=== PATIENT | female | born 1975 | race Caucasian/White ===

== ENCOUNTER 2020-10-02 12:04 | Emergency (ER) | payer BC, SELFPAY ==
--- NOTE | ~2020-10-02 | XR_ITS ---
EXAMINATION: XR elbow RT min 3V DATE: 10/02/2020 12:49 INDICATION: Posterior right elbow pain post fall TECHNIQUE: Anteroposterior, two oblique and lateral views of the right elbow were obtained. COMPARISON: None. FINDINGS: Alignment is normal. No fracture or joint effusion. Joint spaces are normal. Soft tissues are unremar kable. IMPRESSION: 1. No right elbow joint effusion or osseous abnormality. Reviewed, dictated and finalized at location A.
--- NOTE | ~2020-10-02 | XR_ITS ---
EXAMINATION: XR facial bones min 3V DATE: 10/02/2020 12:50 INDICATION: Face injury. TECHNIQUE: 4 views of the facial bones were obtained. COMPARISON: None. FINDINGS: Bone alignment is normal. No fracture. The paranasal sinuses are clear. IMPRESSION: 1. No fracture. Reviewed, dictated and finalized at location B. IMPRESSION: 1. No fracture.
[2020-10-02 12:13] VITALS: BP 139/85; PULSE 84; RESP 20; TEMP 37.7; O2SAT 99
--- NOTE | 2020-10-02 12:22 | ED.FALL ---
HPI - Fall General Chief Complaint: Extremity Injury, Upper Stated Complaint: finger elbow and nose injury Time Seen by Provider: 10/02/20 12:22 Source: patient and RN notes reviewed History of Present Illness HPI Narrative: Patient is a 44-year-old female who presents the urgent care with complaints of right elbow pain, nose pain and left finger pain. Patient states that she was wearing fuzzy socks and fell forward, hitting her face on a wooden toy box in her right elbow on the floor. Patient states it happened approximately 45 minutes prior to arrival. Patient denies of any loss of consciousness or blurry vision. States that she does have a severe headache after the fall. Denies of any dizziness. Patient's main complaint is right elbow pain and nasal pain. Patient denies of any past history of deviated septum, broken nose, broken right arm. Patient did not take anything prior to arrival for her pain. No other acute complaints. Patient is tearful but otherwise no acute distress noted. Patient aware of the plan of care. Some parts of this dictation were generated by voice recognition software and may contain typographical and/or grammatical inaccuracies. Related Data Home Medications Medication Instructions Recorded Confirmed atorvastatin 40 mg PO DAILY 10/02/20 10/02/20 fenofibrate 54 mg PO DAILY 10/02/20 10/02/20 metformin 1,000 mg PO DAILY 10/02/20 10/02/20 sertraline 50 mg PO DAILY 10/02/20 10/02/20 Allergies Allergy/AdvReac Type Severity Reaction Status Date / Time No Known Allergies Allergy Unknown Verified 07/14/18 11:52 Review of Systems Review of Systems: Narrative: CONSTITUTIONAL: Denies fever, chills, or sweats. EYES: Denies visual changes, redness, or discharge. ENT: Denies rhinorrhea, congestion, sore throat, or otalgia. CARDIOVASCULAR: Denies chest pain, palpitations, or edema. RESPIRATORY: Denies cough or dyspnea. GASTROINTESTINAL: Denies abdominal pain, nausea, vomiting, or diarrhea. GENITOURINARY: Denies dysuria or hematuria. SKIN: Denies rash or itching. MUSCULOSKELETAL: Denies back pain, joint pain, or myalgia. NEUROLOGIC: Denies headache, numbness, or weakness. All other systems reviewed are negative, except as documented in HPI. [facility] Social History Social History Gender identity (if verbalized by the patient): Female Comments At the time of my signature, I reviewed and agree with the nursing past medical, surgical, social, and family history. There is no relevant family history pertinent to the patient complaint. Exam Narrative: Exam Narrative: GENERAL: This is a well-nourished, well-developed patient, in no apparent distress. HEAD: normocephalic, atraumatic. EYES: PERRL. Sclera clear/white. Vision is grossly intact. EARS: External ears normal NOSE: External nose normal with no obvious nasal discharge, nares without redness, no rhinorrhea. THROAT: Mucous membranes moist NECK: Neck supple SKIN: 1 cm circular superficial abrasion to the right elbow, bloody. Warm, intact with no suspicious lesions or rash, good texture and turgor. NEURO: awake, alert, and oriented to person, place and time. There were no obvious focal neurologic abnormalities. EXTREMITIES: Very mild ecchymosis noted to the left third digit. Range of motion due to pain. No obvious deformity or edema. Positive left radial pulse with capillary refill less than 2 seconds. BACK: Nontender without deformity or crepitance. No flank tenderness. Course Vital Signs Vital signs: Vital Signs Temperature 99.8 F H 10/02/20 12:13 Pulse Rate 84 10/02/20 12:13 Respiratory Rate 10/02/20 12:13 Blood Pressure 139/85 10/02/20 12:13 Pulse Oximetry 99 10/02/20 12:13 Temperature 99.8 F H 10/02/20 12:13 Pulse Rate 84 10/02/20 12:13 Respiratory Rate 20 10/02/20 12:13 Blood Pressure 139/85 10/02/20 12:13 Pulse Oximetry 99 10/02/20 12:13 Reviewed Procedures Orthopedic Splinting/Casting Injury #1
== END 2020-10-02 13:17 | disposition home or self-care (01) ==
PROVIDERS: Emergency Provider Nurse Practitioner Family; PCP Family Medicine
DX: S50.01XD Contusion of right elbow, subsequent encounter (principal); S00.33XD Contusion of nose, subsequent encounter; S60.032A Contusion of left middle finger without damage to nail, initial encounter; W19.XXXD Unspecified fall, subsequent encounter
CPT/HCPCS: 29130; 70150; 73080; 99214; G0463

== ENCOUNTER 2021-04-13 17:41 | Emergency (ER) | payer OTHER, BC, SELFPAY ==
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
[2021-04-13 18:06] VITALS: BP 126/82; PULSE 72; RESP 14; TEMP 36.4; O2SAT 99
[2021-04-13] MEDS: ACETAMINOPHEN 500 MG TABLET 1000 MG PO (20:01)
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
== END 2021-04-13 21:09 | disposition home or self-care (01) ==
PROVIDERS: Emergency Provider Emergency Medicine; PCP Family Medicine
DX: S09.90XA Unspecified injury of head, initial encounter (principal); S80.02XA Contusion of left knee, initial encounter; E11.9 Type 2 diabetes mellitus without complications; E78.5 Hyperlipidemia, unspecified; Z79.84 Long term (current) use of oral hypoglycemic drugs; V43.62XA Car passenger injured in collision with other type car in traffic accident, initial encounter
CPT/HCPCS: 70450; 73564; 99284; A9270

== ENCOUNTER 2022-06-28 10:16 | Outpatient (CLI) | payer BC, SELFPAY ==
--- NOTE | 2022-06-28 10:29 | ECG_ITS ---
Measurements Intervals [place] Rate: 72 P: 32 SD: 159 QRS: 20 QRSD: 85 T: 37 QT: 407 QTc: 446 Interpretive Statements SINUS RHYTHM LOW QRS VOLTAGE IN PRECORDIAL LEADS [QRS DEFLECTION < 1.0 mV IN CHEST LEADS] POSSIBLE RIGHT VENTRICULAR CONDUCTION DELAY [RSR (QR) IN V1/V2] BORDERLINE ECG NO PREVIOUS ECG AVAILABLE FOR COMPARISON Electronically Signed On 06-28-2022 15:01:08 POT ANNEALER by Augustus Fuentes M.D.
[2022-06-28 11:29] LABS: Alanine Aminotransferase 14 U/L (6-35); Albumin Level 4.5 g/dL (3.5-5.1); Alkaline Phosphatase 62 U/L (38-126); Amylase 87 U/L (30-110); Aspartate Amino Transferase 19 U/L (14-36); Bilirubin,Total 0.6 mg/dL (0.2-1.3); Lipase 181 U/L (23-300)
[2022-06-28 11:31] LABS: Anion Gap 4 mmol/L (8-16); Blood Urea Nitrogen 19 mg/dL (7-17); Calcium 8.9 mg/dL (8.4-10.2); Carbon Dioxide 27 mmol/L (22-30); Chloride 105 mmol/L (98-107); Estimated Glomerular Filt Rate > 60; Glucose 90 mg/dL (65-110); Potassium 3.8 mmol/L (3.4-5.0); Sodium 136 mmol/L (137-145)
== END 2022-06-28 10:17 | disposition home or self-care (01) ==
LOC: ANHSURGERY 10:20
PROVIDERS: Anesthesiology; PCP Family Medicine; Visit Provider Surgery
DX: K80.20 Calculus of gallbladder without cholecystitis without obstruction (principal); E11.9 Type 2 diabetes mellitus without complications; Z01.818 Encounter for other preprocedural examination; R94.31 Abnormal electrocardiogram [ECG] [EKG]
CPT/HCPCS: 36415; 80048; 80076; 82150; 83690; 86850; 86900; 86901; 93005

== ENCOUNTER 2022-07-09 02:57 | Day surgery (SDC) | payer BC, SELFPAY ==
[2022-06-26 14:17] VITALS: BMI 30.9
--- NOTE | 2022-06-26 14:20 | PC.NURSE ---
Report to the Outpatient Waiting Room, entrance under the green pavilion located off [facility], at time 11:30 on date 07/09/22. Planned Procedure Time: 1:30. Time changes happen often and if your time is changed the preop area will call you the afternoon before. - You and your visitor will be asked to self-screen and do not enter if you have any COVID symptoms. - Only one visitor is requested with a max of two and NO children visitors are allowed at this time. - The patient visitor may be requested to leave or wait in car when not with patient due to distancing restrictions. - A mask is optional within the hospital at this time. Patients may have clear liquids (water, carbonated beverages, clear teas, apple juice) until 3 hours prior to surgery (10:30) with a maximum of 20 ounces. - No food from midnight until time of surgery Take the following medications with a SIP of water the morning of surgery: TRAMADOL IF NEEDED DO NOT STOP ANY OF YOUR OTHER PRESCRIPTION MEDICATIONS PRIOR TO SURGERY EXCEPT THE FOLLOWING Medications to discontinue per physician: N/A Date to take last dose: N/A Please no make-up, nail maltese, hairspray, perfume, deodorant, or body powder the day of surgery. No jewelry (including any body piercings) or valuables the day of surgery, leave them at home. Please take a shower or bath the night before, or the morning of, surgery with an antibacterial soap (HIBICLENS). Wear comfortable, loose fitting clothing. - Jewelry must be removed prior to entering the operating room. Rings and piercings that are not removed may be cut off. - The hospital will not accept responsibility for valuables. - Please leave all valuables, including medications, at home the day of surgery. If you are going home after surgery, a licensed backhaul driver must drive you home. - NO public transportation without another adult if you receive anesthesia. - We recommend that an adult stay with you for 24 hours following discharge. - We also recommend that you do not drive, make important decision, drink alcoholic beverages, or take any drugs that were not prescribed by your health care provider for at least 24 hours after your discharge time. Follow any additional instructions given to you from your surgeon. If you or anyone in your household have experienced Covid symptoms in the past week, please notify your surgeon or the nurse liaison at the phone number below for possible testing. Telephone instructions given to LORNA SHAW and asked if any additional questions and then verbalized understanding. Patient advised to call surgeon office or pre surgery nurse liaison [phone] if any additional questions.
--- NOTE | 2022-07-08 15:31 | WPDANESEPPF ---
Anes - Initial Pre Proc Eval Procedure: Operation Date: 07/09/22 13:30 Proposed Procedures p Laparoscopic Cholecystectomy, Possible Open, Davinci Assisted - Ladarius Rust DO Date/Time: 07/08/22 15:31 Surgeon: Ladarius Rust DO Pre Op Diagnosis: Symptomatic Cholelithiasis Patient Data Age: 46 Gender: F Height: 1.63 m Weight: 81.65 kg Allergies Allergy/AdvReac Type Severity Reaction Status Date / Time No Known Allergies Allergy Unknown Verified 07/09/22 11:56 Home Medications Medication Instructions Recorded Confirmed Type atorvastatin 40 mg tablet 40 mg PO HS 10/02/20 07/09/22 History fenofibrate 54 mg tablet 54 mg PO HS 10/02/20 07/09/22 History metformin 1,000 mg tablet 1,000 mg PO HS 10/02/20 07/09/22 History sertraline 50 mg tablet 50 mg PO HS 10/02/20 07/09/22 History omeprazole 40 mg capsule,delayed 40 mg PO HS 06/14/22 07/09/22 History release semaglutide 0.25 mg or 0.5 mg (2 0.25 mg subcut WEEKLY 06/14/22 07/09/22 History mg/1.5 mL) subcutaneous pen injector ([employer]) tramadol 50 mg tablet 50 mg PO TID PRN Pain 06/26/22 07/09/22 History ECG: Date of Service: 06/28/22 Procedure(s): CA 12 lead EKG Accession Number(s): [id number] cc: ~ ? Measurements Intervals? [place]? Rate: ? 72 ? P:? 32 SC: ? 159? QRS:? 20 QRSD: ? 85 ? T:? 37 QT: ? 407? QTc:? 446? Interpretive Statements SINUS RHYTHM LOW QRS VOLTAGE IN PRECORDIAL LEADS [QRS DEFLECTION < 1.0 mV IN CHEST LEADS] POSSIBLE RIGHT VENTRICULAR CONDUCTION DELAY [RSR (QR) IN V1/V2] BORDERLINE ECG NO PREVIOUS ECG AVAILABLE FOR COMPARISON Electronically Signed On 06-28-2022 15:01:08 ACCOUNTING SOFTWARE SPECIALIST by Augustus Fuentes M.D. Patient hx anesthesia problems: none Family hx anesthesia problems: none Results Review: All pre-operative results and documents have been reviewed as part of the pre-operative evaluation. 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 Informed Consent: The patient's anesthetic plan and its attendant risks and benefits were discussed with the patient/family/POA. Questions were solicited and answers provided to the satisfaction of the patient/family/POA.
[2022-07-09] VITALS (10 sets, daily range): BP systolic 100–117; BP diastolic 62–73; PULSE 78–89; RESP 14–18; TEMP 36.1–36.5; O2SAT 98–100
[2022-07-09] MEDS: LACTATED RINGERS 1,000 ML 30 ML IV CONT ×2 (12:05→15:37)
[2022-07-09] MEDS: INDOCYANINE GREEN 25 MG VIAL 3.75 MG IV PUSH (12:06)
[2022-07-09 12:14] LABS: Glucose Point of Care 94 mg/dl (65-105)
[2022-07-09] MEDS: ACETAMINOPHEN 500 MG TABLET 1000 MG PO (12:23)
[2022-07-09] MEDS: KETOROLAC 15 MG/ML VIAL (*BKC) IV PUSH (12:26)
--- NOTE | 2022-07-09 13:54 | WPDHPUPDATE1 ---
History and Physical Update Update Date/Time: 07/09/22 13:54 History and Physical has been reviewed, including an updated exam of the patient. There are NO changes in the patient's condition. Plan changed to proceed with laparoscopic cholecystectomy, da Julio César assisted. No other changes to plan. Risks, benefits, and alternatives have been discussed and questions answered. Patient agrees to proceed with procedure.
--- NOTE | 2022-07-09 13:57 | SUR.PREOP ---
informed of delay in procedure
[2022-07-09] MEDS: ceFAZolin 2 GM/D5W 50 ML 2 GM/50 ML BAG IVPB (14:23)
[2022-07-09] MEDS: BUPIVACAINE/EPINEPHRINE 0.5% 30 ML VIAL INFILTRATE (15:07)
--- NOTE | 2022-07-09 15:38 | W.PM.PROC2 ---
Procedure Note - Detailed Date of Procedure 07/09/22 Pre-op Diagnosis Symptomatic Cholelithiasis Post-op Diagnosis Same Procedure Performed 1. Laparoscopic cholecystectomy with cholangiography, da Julio César assisted 2. Interpretation of cholangiography Surgeon Ladarius Rust DO Anesthesia General and Local (0.5% bupivacaine) Indications This is a 46-year-old woman who presented with right upper quadrant pain that started about 1 month ago. She noted this after eating fried food. A gallbladder ultrasound was obtained at an outside facility and this showed evidence of cholelithiasis without cholecystitis. Discussions were made with the patient about treatment options and decision was made to proceed with robotic assisted laparoscopic cholecystectomy, possible open. Findings Laparoscopic cholecystectomy was performed. Indocyanine green was given intravenously preoperatively to allow for adequate visualization of the bile ducts. Near infrared imaging was utilized to identify the cystic duct and common bile duct. This allowed me to adequately identify the anatomy for dissection of the cystic duct. The gallbladder had a few pericholecystic adhesions. The cystic duct appeared normal in size. There was 1 medium sized gallstone within the neck of the gallbladder. No other significant abnormalities were noted. The gallbladder was removed and sent to the lab for pathology. Description of Procedure Procedure as well as risks, benefits, and alternatives were discussed with the patient. Written consent was obtained and placed in chart prior to procedure. 1.5 mL of indocyanine green was given intravenously in preop. Patient was brought back to surgical suite. She was placed supine on operating table. Time-out was done to confirm patient and procedure. She was then intubated by the anesthesia department. Her abdomen was then prepped and draped in sterile fashion using chlorhexidine prep. 0.5% bupivacaine was infiltrated locally at the site of each port placement. An 8 mm incision was made just superior to the umbilicus and a 5 mm Optiview trocar was then advanced through the abdominal layers under direct visualization. Once inside the abdominal cavity, carbon dioxide insufflation was used to create a pneumoperitoneum. The camera was inserted and the abdomen was inspected. No mediated abnormalities were noted. The patient was placed in 10? reverse Trendelenburg position and rotated 10? to the left. Two 8 mm incisions were made in the right lateral abdomen and 2 8 mm trocars were inserted under direct visualization. A 8 mm incision was made in the left lateral abdomen and a 8 mm trocar was inserted under direct visualization. The 5 mm Optiview trocar was then removed and another 8 mm trocar was inserted in its place. The robotic arms were then brought up to the patient's bedside and secured to each port. The camera and instruments were inserted. I then moved over to the robotic consult to take control of the camera and instruments. The gallbladder was grasped at the fundus and retracted cephalad. The infundibulum of the gallbladder was then grasped and retracted laterally. Hook electrocautery was then used to carefully dissect around the neck of the gallbladder. The cystic duct was identified and a window was created around it using hook electrocautery. The cystic artery was also identified and a window was created behind it using hook electrocautery. Critical view of safety was identified visualizing the cystic duct running directly into the neck of the gallbladder and the cystic artery running directly into the wall the gallbladder. The camera view was switched to firefly mode and the indocyanine green within the gallbladder and cystic duct was clearly visualized. No other structures were noted running into this region and there did not appear to be any obstruction of the cystic duct impeding flow of bile into the gallbladder. The camera mode was switch
[2022-07-09 15:47] LABS: Glucose Point of Care 142 mg/dl (65-105)
[2022-07-09] MEDS: oxyCODONE HCL (*CRX) 5 MG TAB IR PO (17:50)
== END 2022-07-09 18:20 | disposition home or self-care (01) ==
PROVIDERS: PCP Family Medicine; Visit Provider Surgery
PROC: 0FT44ZZ Resection of Gallbladder, Percutaneous Endoscopic Approach (ICD-10-PCS; CPT 47562; principal; 2022-07-09 13:30)
DX: K80.10 Calculus of gallbladder with chronic cholecystitis without obstruction (principal); E11.9 Type 2 diabetes mellitus without complications; K21.9 Gastro-esophageal reflux disease without esophagitis; E78.00 Pure hypercholesterolemia, unspecified; F32.A Depression, unspecified; E66.9 Obesity, unspecified; Z68.30 Body mass index [BMI] 30.0-30.9, adult; Z79.84 Long term (current) use of oral hypoglycemic drugs; Z79.899 Other long term (current) drug therapy
CPT/HCPCS: 47563; 74300; S2900; 82948; 88304; A9270; J0690; J1100; J1885; J2405; J2704; J2710; J3010; J7030; J7120

== ENCOUNTER 2024-11-02 17:48 | Emergency (ER) | payer BC, SELFPAY ==
--- OUTSIDE RECORDS SUMMARY | 2024-11-02 17:50 | XMS_ITS | Clinical Summary ---
Author Organization [facility] Health Address [address] [place] [address] Care Team Providers Care Management Services Technician Name Role Phone Edmundo Costello MD Primary Care Provider [phone] Source Comments [facility],non-[facility] Affiliates and Associated Physician Practices is amultiple site organization consisting of ambulatory clinics and hospital sitesin [place], [place], [place] and [place]. This disclosure is being madepursuant to the Care Everywhere program and may not contain all information available regarding this patient. 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 Gender Identity Not on file Sexual Orientation Not on file Plan of Treatment Health Maintenance Due Date Last Done Comments COLOGUARD (AGES 45-75) - COL ON CA SCREENING 1976 COLON MONITORING 1976 COLONOSCOPY - COLON CA SCREENING 1976 CT COLONOGRAPHY - COLON CA SCREENING 1976 Colorectal Cancer Screening 1976 FIT - COLON CA SCREENING 1976 FLEX SIG - COLON CA SCREENING 1976 LIPID TESTING 1976 MAMMOGRAM 1976 HIV SCREENING 11/19/1991 HEPATITIS C SCREENING 11/14/1994 DTAP/TDAP/TD VACCINES (1 - Tdap) 11/19/1995 HEPATITIS B VACCINE (1 of 3 - 19+ 3-dose series) 11/19/1995 COVID-19 VACCINE (2023-2 5 season) 2024 DEPRESSION SCREENING 05/26/2024 INFLUENZA VACCINE (Season Ended) 2025 ZOSTER VACCINE (1 of 2) 2026 HIB VACCINE Aged Out No longer eligi ble based on patient's age to complete this topic HPV VACCINE Aged Out No longer eligi ble based on patient's age to complete this topic MENINGOCOCCAL (Group B) VACC INE SHARED DECISION-MAKING Aged Out No longer eligibl e based on patient's age to complete this topic MENINGOCOCCAL GROUPS A/C/Y/W VACCINE Aged Out No longer eligible b ased on patient's age to complete this topic PNEUMOCOCCAL VACCINE Aged Out No long er eligible based on patient's age to complete this topic Care Teams Management Services Technician Relationship Specialty Start Date End Date Edmundo Costello MD [address] [place] [address] PCP - General 07/30/22
--- OUTSIDE RECORDS SUMMARY | 2024-11-02 17:50 | XMS_ITS | Referral Summary ---
Author Organization [facility] Address [address] [place] [address] Care Team Providers Care Psychology Department Chair Name Role Phone Edmundo Costello MD Unavailable [phone] Edmundo Costello MD Primary Care Provider [phone] Allergies No known active allergies Medications blood-glucose meter (Freestyle InsuLinx) miscIndication s:Type 2 diabetes mellitus without complication, without long-term current use of insulin (HCC) Test daily before all meals/snacks and once before bedtime. 1 each 06/17/19 Active lancets miscIndication s:Type 2 diabetes mellitus without complication, without long-term current use of insulin (HCC) Use to check blood sugars once daily or as directed. 200 each 06/17/19 Active blood glucose diagnostic (OneTouch Verio test strips) stripIndicatio ns:Type 2 diabetes mellitus without complication, without long-term current use of insulin (HCC) USE TO CHECK BLOOD SUGAR ONCE A DAY OR DIRECTED 50 strip 06/25/19 Active OneTouch Delica Plus Lancet 33 gauge misc 12/12/19 Active atorvastatin (LIPITOR) 20 mg tabletIndicati ons:Hyperlipid emia associated with type 2 diabetes mellitus (HCC) Take 1 tablet (20 mg total) by mouth daily 90 tablet 4 01/29/20 24 025 Active tirzepatide (Mounjaro) 12.5 mg/0.5 mL pen injector Inject 12.5 mg under the skin every 7 days 2 mL 03/25/20 24 Active ondansetron (ZOFRAN) 4 mg tablet Take 1 tablet (4 mg total) by mouth every 8 (eight) hours as needed for nausea or vomiting 30 tablet 05/28/19 25 Active sertraline (ZOLOFT) 100 mg tabletIndicati ons:Moderate episode of recurrent major depressive disorder (HCC) TAKE 1 TABLET(100 MG) BY MOUTH DAILY 90 tablet 4 09/28/19 25 Active Mounjaro 15 mg/0.5 mL pen injector injection ADMINISTER 15 MG UNDER THE SKIN EVERY 7 DAYS 2 mL 10/16/19 25 Active Mounjaro 15 mg/0.5 mL pen injector injection ADMINISTER 15 MG UNDER THE SKIN EVERY 7 DAYS 2 mL 09/21/19 25 025 Discontinued Active Problems Problem Noted Date Diagnosed Date Physical exam, annual 01/27/2024 Assessment & Plan (01/27/2024 4:23 PM CDT): Preventive exam; reviewed recommended preventive screenings and vaccinations. Encourage annual flu vaccine. Wear sunscreen/protective clothing when outdoors. -encouraged patient to schedule mammogram, reordered mammogram today Strain of left shoulder 02/10/2023 Assessment & Plan (02/10/2023 10:56 AM CDT): Instructed patient to avoid aggravating activity as able, will trial use of ibuprofen 3 times a day with food x 7-10 days. Prescribed Flexeril p.r.n.. Follow-up if no improvement. Left lower quadrant abdominal mass 08/23/2022 Assessment & Plan (08/23/2022 3:04 PM CDT): No concerning findings on exam. Soft tissue mass c/w lipoma. US ordered. Patent is established with general surgeon Dr. Augustin, will call to schedule eval and discuss surgical option/candidacy. BMI 29.0-29.9,adult 08/23/2022 Assessment & Plan (08/23/2022 3:05 PM CDT): Congratulated on intentional weight loss of 40 lbs. Calculus of gallbladder with out cholecystitis without obstruction 06/17/2022 Assessment & Plan (07/03/2022 11:45 AM PHOTO FINISHER): Intermittent pain, scheduled for cholecystectomy scheduled 07/09/[address] Rust. Continues prn tramadol and ondansetron. Reviewed need to follow bland diet and avoid fatty/spicy foods. Go to ER if experiencing new or worsening pain. Assessment & Plan (06/17/2022 9:43 AM PHOTO FINISHER): Normal exam today. Patient has not been experiencing pain for the past 48 hours. Normal labs. Encouraged her to follow low fat diet and keep symptom log. Recommended use of miralax for periodic constipation. Reviewed red flag signs and symptoms warranting immediate ER evaluation. Will refer to general surgery for further evaluation of possible cholecystectomy. Chronic pain of left knee 03/01/2021 Assessment & Plan (03/01/2021 10:12 AM CDT): Discussed imaging and PT vs referral. Patient would like referral to ortho to discuss if candidate for steroid injections. Reviewed pain relief options. Recommended topical pain relief such as diclofenac gel. Encounter for screening mammogram for breast can cer 03/01/2021 Assessment & Plan (03/01/2021 10:11 AM CDT): Patient aware to schedule mammogram. Continue monthly sbe. COVID-19 virus infection 06/23/2020 Class 1 obesity due to exces s calories with serious comorbidity and body mass index (BMI) of 30.0 to 30.9 in adult 06/12/2020 Assessment & Plan (01/27/2024 4:24 PM CDT): Encouraged healthy diet and regular exercise Assessment & Plan (07/03/2022 11:45 AM PHOTO FINISHER): Discussed healthy diet and importance of regular physical activity. Assessment & Plan (06/17/2022 9:21 AM PHOTO FINISHER): Continues ozempic 1 mg weekly. Encouraged increase exercise and monitoring diet/portions. Wt Readings from Last 6 Encounters: 06/17/22 82.6 kg (182 lb) 06/12/22 83.5 kg (184 lb) 02/05/22 93.3 kg (205 lb 9.6 oz) 12/05/21 96.2 kg (212 lb) 05/25/21 96.2 kg (212 lb) 03/01/21 96.4 kg (212 lb 9.6 oz) Assessment & Plan (10/01/2021 1:39 PM CDT): Discussed healthy diet and importance of regular physical activity. Discussed side effects of weight loss with use of ozempic for diabetes management. Assessment & Plan (03/01/2021 10:13 AM CDT): Discussed healthy diet and importance of regular physical activity. Gastroesophageal reflux dise ase with esophagitis without hemorrhage 05/14/2019 Assessment & Plan (10/01/2021 1:46 PM CDT): Patient where GERD and history ofeosinophilic esophagitis and stricture, not currently taking PPI. EGD with biopsy and dilation in completed 2018. Patient States that it is pantoprazole was not covered by insurance so she has not been taking anything for her GERD symptoms at this time. Recommended she resume omeprazole 40 mg daily and follow-up with GI. Assessment & Plan (05/14/2019 3:37 PM PHOTO FINISHER): Stable on omeprazole. Complicated migraine 02/02/2019 Assessment & Plan (02/02/2019 4:16 AM CDT): Currently resolved. Patient states she also stopped taking caffeine yesterday which may have contributed to her headache. Patient also took her 1st dose of Provigil the night before presentation. Currently patient's headache has resolved. Left-sided weakness 02/02/2019 Assessment & Plan (02/02/2019 4:18 AM CDT): Suspect it is related to a complicated migraine. Her symptoms completely resolved after resolution of her headache. Patient had a similar symptoms years ago at [facility]. She states the only reason she did not get tPA was that she just had a polyp removed from her throat and they were concern for bleeding. During that episode, patient states she had left-sided weakness and numbness 1st prior to the headache. Neurology has been consulted will await their evaluation. Continue with neuro checks. Dysphagia 10/15/2018 Assessment & Plan (10/15/2018 3:35 PM CDT): The patient's exam shows a healthy larynx, without evidence of laryngopharyngeal reflux. The patient has a previous diagnosis of eosinophilic esophagitis. Given this previous diagnosis and today's exam, we feel that evaluation by gastroenterology and upper endoscopy may be a prudent first step and the workup of the dysphagia. Esophageal stricture 10/15/2018 Overview (10/15/2018): Added automatically from request for surgery [id number] Narcolepsy and cataplexy 10/12/2018 Assessment & Plan (05/14/2019 3:33 PM PHOTO FINISHER): Stable on current medication. Obstructive sleep apnea (adult) (pediatric) 09/24 Refused influenza vaccine 09/08/2018 Assessment & Plan (09/11/2018 8:06 AM CDT): Strongly encouraged yearly influenza vaccines. Hyperlipidemia associated with type 2 diabetes zuri mendenhall 09/08/2018 Assessment & Plan (01/27/2024 3:54 PM CDT): Discontinue atorvastatin 1 year ago. Previously explained to patient that she will likely need to continue taking statin however she will need to repeat labs to determine dosage. Assessment & Plan (02/10/2023 10:56 AM CDT): Will discontinue atorvastatin 40 mg daily and repeat labs in 3 months. Discussed with patient that she will likely continue to require use of statin although can consider restarting at lower dosage pending labs. Assessment & Plan (06/17/2022 9:37 AM PHOTO FINISHER): Continues atorvastatin 40 mg daily with good response. Will continue to monitor. Assessment & Plan (10/01/2021 1:48 PM CDT): 02/2021 TC 162 HDL 34 TRG 127 LDL 102 Reviewed diet and exercise recommendations. Continue atorvastatin 40 mg daily, patient denies any medication side effects. Lab work ordered today. Assessment & Plan (03/01/2021 10:02 AM CDT): TC 162 HDL 34 TRG 127 LDL 102 Reviewed diet and exercise recommendations. No changes in current medications. Assessment & Plan (05/14/2019 3:33 PM PHOTO FINISHER): Briefed on heart healthy diet and need for weight loss. Assessment & Plan (02/02/2019 4:17 AM CDT): Continue statin Assessment & Plan (09/11/2018 8:05 AM CDT): Lipid abnormalities are worsening. Nutritional counseling was provided. and Pharmacotherapy as ordered. Lipids will be reassessed in 3 months. Has not been in clinic in >1yr. Has not been taking meds. Atorvastatin reordered at this time. Primary narcolepsy without cataplexy 09/08/2018 Assessment & Plan (02/02/2019 4:18 AM CDT): Patient was started on Provigil recently and took her 1st dose the day prior to presentation. She states she immediately felt dizzy afterwards. Patient advised to hold Provigil until she speaks to Neurology. Assessment & Plan (09/11/2018 8:06 AM CDT): Referral to Dr Uche Farris per her choice in neuro/sleep medicine. Moderate episode of recurrent major depressive d isorder 09/08/2018 Assessment & Plan (10/01/2021 1:39 PM CDT): Stable on current medication regimen, no medication changes today. Assessment & Plan (03/01/2021 10:14 AM CDT): Doing well on sertraline. PHQ=0 Assessment & Plan (02/02/2019 4:18 AM CDT): Continue Zoloft Assessment & Plan (09/11/2018 8:05 AM CDT): Psychological condition is worsening. Medication changes per orders. Psychological condition will be reassessed 6 week follow-up. Has not been taking meds in >1yr. Will resume sertraline at 50mg. To f/u in 6 wks. Reviewed med SE & scheduling. . Type 2 diabetes mellitus wit hout complication, without long-term current use of insulin 08/20/2018 Assessment & Plan (01/27/2024 4:23 PM CDT): Lab Results Component Value Date HGBA1C 5.6 10/10/2022 HGBA1C 6.0 06/17/2022 HGBA1C 7.8 (H) 02/27/2022 Doing well with Mounjaro 10 mg weekly. Patient is up-to-date on eye exam. Blood pressure is well controlled. Will check lipids and plan to reinitiate statin therapy if indicated. No changes made today, will continue to monitor Assessment & Plan (02/10/2023 10:57 AM CDT): Lab Results Component Value Date HGBA1C 5.6 10/10/2022 HGBA1C 6.0 06/17/2022 HGBA1C 7.8 (H) 02/27/2022 Excellent glycemic control, no changes in current medication regimen. Blood pressure is well controlled. Assessment & Plan (06/17/2022 9:22 AM PHOTO FINISHER): Lab Results Component Value Date HGBA1C 6.0 06/17/2022 HGBA1C 7.8 (H) 02/27/2022 HGBA1C 9.8 03/01/2021 Significant improvement in a1c. Encouraged to check blood glucose periodically. Assessment & Plan (10/01/2021 1:35 PM CDT): Has occasionally forgot morning dose of metformin but otherwise has been tolerating 1000mg BID. A1c ordered. Continue Metformin. Will start semaglutide 0.25 mg sub q weekly for diabetes management. Reviewed medication scheduling and side effects, discussed dose increase after 4 weeks. Patient states she had an eye exam 6 months ago at [facility], will request records. Checking feet daily, - neuropathy. Reviewed diet and exercise recommendations. Assessment & Plan (03/01/2021 10:02 AM CDT): Patient to increase metformin to 1000mg BID. Will continue to follow A1c. Encouraged patient to monitor BS at home. Reviewed diet and exercise recommendations. To schedule annual eye exam. Lab Results Component Value Date HGBA1C 9.8 03/01/2021 HGBA1C 8.4 (H) 06/12/2020 HGBA1C 9.9% 05/14/2019 Assessment & Plan (05/14/2019 3:32 PM PHOTO FINISHER): Will increase metformin follow-up in 3 months. Reviewed most recent labs Assessment & Plan (02/02/2019 4:17 AM CDT): Patient is on metformin. Continue with low-dose sliding scale. Assessment & Plan (09/11/2018 8:07 AM CDT): Diabetes is worsening. Reminded to bring in blood sugar diary at next visit. Dietary recommendations for ADA diet. Regular aerobic exercise. Discussed foot care. Reminded to get yearly retinal exam. Ophthalmology referral. Diabetes will be reassessed in 3 months. Poorly controlled diabetic. Poor compliance with diabetic treatment and testing. Last A1c=8.5% Stressed need to watch intake and monitor blood sugars. Reviewed end-organ damage related to elevated blood sugars. Reviewed recommendations in diet and exercise. Stressed need to take medications as ordered. Discussed diabetic eye exam; need yearly. To send any past eye exams to our office. Cough 08/30/2016 Overview (10/18/2016): Cough Carpal tunnel syndrome 08/30/2015 Overview (08/30/2016): Carpal tunnel syndrome, right Eosinophilic esophagitis Assessment & Plan (10/15/2018 10:13 PM CDT): Discussed with patient that this needs management from a GI. Resolved Problems Problem Noted Date Diagnosed Date Resolved Date BMI 35.0-35.9,adult 09/08/2018 03/01/20 21 Assessment & Plan (05/14/2019 3:33 PM PHOTO FINISHER): Advised on need for weight loss in maintaining an aerobic exercise program. Assessment & Plan (09/11/2018 8:04 AM CDT): Reviewed need to lose weight, reviewed health benefits. Reviewed recommendations for daily intake & activity 20-30 minutes/day. Discussed healthy diet and importance of regular physical activity. Difficulty exercising at this time d/t bilat foot pain. Neck pain 02/29/2016 09/11/2018 Overview (08/30/2016): Cervicalgia Immunizations Immunization Administration Dates Next Due Influenza, Unspecified 01/27/2024(Deferr ed: Patient Refused),02/23/2023(Deferred: Patient Refused),02/10/2023(Deferred: Patient Refused),08/23/2022(Deferred: Patient Refused),07/03/2022(Deferred: Patient Refused),06/17/2022(Deferred: Patient Refused),02/23/2022(Deferred: Patient Refused),02/23/2022(Deferred: Patient Refused),02/23/2022(Deferred: Patient Refused),01/24/2022(Deferred: Patient Refused),03/01/2021(Deferred: Patient Refused),02/23/2021(Deferred: Patient Refused),02/23/2021(Deferred: Patient Refused),02/23/2021(Deferred: Patient Refused),02/24/2020(Deferred: Patient Refused),05/26/2019(Deferred: Patient Refused),05/14/2019(Deferred: Patient Refused),09/08/2018(Deferred: Patient Refused),05/26/2018(Deferred: Patient Refused),05/27/2017(Deferred: Patient Refused),05/26/2017(Deferred: Patient Refused),05/27/2016(Deferred: Patient Refused) PPD TEST 01/27/2024 Tdap 01/27/2024 Social History Tobacco Use Types Packs/Day Years Used Date Smoking Tobacco: Never Smokeless Tobacco: Never Tobacco Cessation:Counseling Given: Not Answered Alcohol Use Standard Drinks/Week Comments No 0 (1 standard drink = 0.6 oz pur e alcohol) AUDIT-C Answer Date Recorded Q1: How often do you have a drink containing alc ohol? Never 06/17/2022 Average Number of Drinks Not on file 023 Frequency of Binge Drinking Not on file 05/27 PHQ-2 Answer Date Recorded PHQ-2 Total Score (If total score is 3 or more points, staff should administer the PHQ-9) 0 01/27/2024 Exercise Vital Sign Answer Date Recorde d On average, how many days pe r week do you engage in moderate to strenuous exercise (like a brisk walk)? 0 days 06/17/2022 On average, how many minutes do you engage in exercise at this level? 0 min 06/17/2022 Comments No Sex and Gender Information Value Date Recorded Sex Assigned at Not on file Legal Sex Female 2:39 AM PHOTO FINISHER Gender Identity Not on file Sexual Orientation Not on file Last Filed Vital Signs Vital Sign Reading Time Taken Comments Blood Pressure 110/72 01/27/2024 3:39 PM CDT Pulse 75 01/27/2024 3:39 PM CDT Temperature 36.7 C (98 F) 01/27/2024 3:39 PM CDT Respiratory Rate 16 01/27/2024 3:39 PM CDT Oxygen Saturation 99% 01/27/2024 3:39 PM CDT Inhaled Oxygen Concentration - - Weight 79.4 kg (175 lb) 01/27/2024 3:39 PM CDT Height 162.6 cm (5' 4.02) 01/27/2024 3:39 PM CD T Body Mass Index 30.02 01/27/2024 3:39 PM CDT Plan of Treatment Not on file Procedures Procedure Name Priority Date/Time Associated Diagnosis Comments EGFR Routine 01/28/2024 10:01 AM CDT Type 2 diabetes mellitus without complication, without long-term current use of insulin (HCC) Hyperlipidemia associated with type 2 diabetes mellitus (HCC) HEMOGLOBIN A1C Routine 01/28/2024 10:01 AM CDT Type 2 diabetes mellitus without complication, without long-term current use of insulin (HCC) Hyperlipidemia associated with type 2 diabetes mellitus (HCC) LIPID PANEL Routine 01/28/2024 10:01 AM CDT Type 2 diabetes mellitus without complication, without long-term current use of insulin (HCC) Hyperlipidemia associated with type 2 diabetes mellitus (HCC) ALBUMIN CREATININE RATIO, URINE Routine 01/28/2024 10:01 AM CDT Type 2 diabetes mellitus without complication, without long-term current use of insulin (HCC) Hyperlipidemia associated with type 2 diabetes mellitus (HCC) DIABETIC EYE EXAM Routine 10/11/2023 11: 34 AM CDT SCREENING MAMMOGRAM BILATERAL W SAGAR Schedule Routine, Read Routine (OP Routine) 10/31/2022 10:05 AM CDT Screening mammogram, encounter for STOOL DNA COLOGUARD Routine 07/21/2022 3:30 PM PHOTO FINISHER Encounter for colorectal cancer screening from Last 3 Months or Most Recently Relevant to Health Maintenance Results * eGFR (01/28/2024 10:01 AM CDT) eGFR >90 >=60 mL/min/1. 73 m2 Comment: Interpretive Data Reference Interval Normal >/= 90 mL/min/1.73m2 Mildly decreased* 60 - 89 mL/min/1.73m2 Mildly to moderately decreased 45 - 59 mL/min/1.73m2 Moderately to severely decreased 30 - 44 mL/min/1.73m2 Severely decreased 15 - 29 mL/min/1.73m2 Kidney Failure < 15 mL/min/1.73m2 *Relative to young adult level Estimated glomerular filtration rate is determined by the 2020 CKD-EPI equation recommended by the National Kidney Foundation (A Unifying Approach to GFR Estimation: Recommendations of the NKF-ASK Task Force on Reassessing the Inclusion of Race in Diagnosing Kidney Disease, JASN 2020). The CKD-EPI equation should not be used for patients with unstable renal function and has not been validated in children and those over 70. Current interpretive data was last reviewed 2021. Testing performed by: [facility], [address] [place] [address]., [id number] Blood 01/28/2024 10:0 1 AM CDT 01/28/2024 2:00 PM CDT Sravanthi Banerjee CONVEYOR LOADER LAB BLOOD ORDERABLES Final Result Performing Organization Address City/[facility]/ZIP Co de Phone Number OBED SOMMER (ALLIE) 1 [facility] [place] [address] * Albumin Creatinine Ratio, Urine (01/28/2024 10:01 AM CDT) Albumin Ur <12.0 mg/L Comment: Interpretive Data No reference range established. Current interpretive data was last revised 2018. Testing performed by: [facility], [address] [place] [address]., [id number] Creatinine Ur 273.7 mg/dL OBED SOMMER (ALLIE) Comment: Interpretive Data No reference range established. Current interpretive data was last revised 2018. Testing performed by: [facility], [address] [place] [address]., [id number] Albumin Creatinine Ratio, Ur <4 1 - 29 mg/g OBED SOMMER (ALLIE) Comment:Testing performed by : [facility], [address] [place] [address]., [id number] Urine 01/28/2024 10:0 1 AM CDT 01/28/2024 1:41 PM CDT Sravanthi Banerjee NP LAB URINE ORDERABLES Final Result Performing Organization Address City/[facility]/ZIP Co de Phone Number OBED SOMMER (ALLIE) 1 [facility] [place] [address] * Hemoglobin A1c (01/28/2024 10:01 AM CDT) Hgb A1C 5.5 4.0 - 5.6 % Comment:Testing performed by : [facility], [address] [place] [address]., [id number] Estimated Average Glucose 111 mg/dL OBED SOMMER (ALLIE) Comment: The ADA recommends reporting an estimated Average Glucose (eAG) with all Hemoglobin A1c results using the equation derived from a study of 507 normal and diabetic adults. Minority populations were underrepresented and children were not included. (Diabetes Care 31:9055-0049, 2008). The eAG is not equivalent to a fasting glucose. Testing performed by: [facility], [address] [place] [address]., [id number] Blood 01/28/2024 10:0 1 AM CDT 01/28/2024 1:41 PM CDT Sravanthi Banerjee NP LAB BLOOD ORDERABLES Final Result OBED SOMMER (ALLIE) 1 [facility] [place] [address] * (ABNORMAL) Lipid panel (01/28/2024 10:01 AM CDT) Cholesterol 224(H) 30 - 199 mg/dL Comment: Interpretive Data Ages < or = 19 years Acceptable: <170 mg/dL Borderline high: 170-199 mg/dL High: >or= 200 mg/dL Ages > or = 20 years Desirable: <200 mg/dL Borderline high: 200-239 mg/dL High: >or= 240 mg/dL Literature References: 1. Expert Panel on Integrated Guidelines for Cardiovascular Health and Risk Reduction in Children and Adolescents. Pediatrics 2011;128:S213 2. NCEP Expert Panel. Circulation 2004;110:227 Current Interpretive Data was last revised on 2018. Testing performed by: [facility], [id number] [place] [address], [place]., [address] Triglycerides 101 <=149 mg/dL OBED SOMMER (ALLIE) Comment: Interpretive Data Ages < or = 9 years Acceptable: <75 mg/dL Borderline high: 75-99 mg/dL High: >or= 100 mg/dL Ages 10 to 20 years Acceptable: <90 mg/dL Borderline high: 90-129 mg/dL High: >or= 130 mg/dL Ages > or = 20 years Desirable: <150 mg/dL Borderline high: 150-199 mg/dL High: 200-499 mg/dL Very high: >or= 499 mg/dL Literature References: 1. Expert Panel on Integrated Guidelines for Cardiovascular Health and Risk Reduction in Children and Adolescents. Pediatrics 2011;128:S213 2. NCEP Expert Panel. Circulation 2004;110:227 Current Interpretive Data was last revised on 2018. Testing performed by: [facility], [address] [place] [address]., [id number] HDL 45 >=40 mg/dL CERISAAC SOMMER (ALLIE) Comment: Interpretive Data Ages < or = 19 years Acceptable: >45 mg/dL Borderline low: 40-45 mg/dL Low: <40 mg/dL Ages > or = 20 years Desirable: >or= 60 mg/dL Low: <40 mg/dL Literature References: 1. Expert Panel on Integrated Guidelines for Cardiovascular Health and Risk Reduction in Children and Adolescents. Pediatrics 2011;128:S213 2. NCEP Expert Panel. Circulation 2004;110:227 Current Interpretive Data was last revised on 2018. Testing performed by: [address] [address] LDL, calculated 161(H) <=129 mg/dL [facility] (ALLIE) Comment: Interpretive Data Ages < or = 19 years Acceptable: <110 mg/dL Borderline high: 110-129 mg/dL High: >or= 130 mg/dL Ages > or = 20 years Optimal: <100 mg/dL Near optimal: 100-129 mg/dL Borderline high: 130-159 mg/dL High: >160 mg/dL Calculated using the Cornel LDL-C estimating equation. This equation was implemented on 2024. Prior to this date LDL-C was estimated using the Friedewald equation. Literature References: 1. Expert Panel on Integrated Guidelines for Cardiovascular Health and Risk Reduction in Children and Adolescents. Pediatrics 2011;128:S213 2. NCEP Expert Panel. Circulation 2004;110:227 3. Cornel Mortensen al. HORACE Cardiol. 2020 September 23;5(5):540-548. doi: 10.1001/[email or web address].2020.0013 Current Interpretive Data was last revised on 2024. Testing performed by: [address] [address] Non-HDL Cholesterol 179 mg/dL [facility] (ALLIE) Comment: Interpretive Data Ages < or = 19 years Acceptable: <120 mg/dL Borderline high: 120-144 mg/dL High: >145 mg/dL Ages > or = 20 years When triglycerides are >200 mg/dL, Non-HDL cholesterol is a secondary target of therapy with treatment goals that are 30 mg/dL greater than the LDL cholesterol target. Literature References: 1. Expert Panel on Integrated Guidelines for Cardiovascular Health and Risk Reduction in Children and Adolescents. Pediatrics 2011;128:S213 2. NCEP Expert Panel. Circulation 2004;110:227 Current Interpretive Data was last revised on 2018. Testing performed by: [facility], [address] [place] [address]., [id number] Chol/HDL ratio 5 ABRAHAM SOMMER ([place]) Comment:Testing performed by : [facility], [address] [place] [address]., [id number] Blood 01/28/2024 10:0 1 AM CDT 01/28/2024 1:41 PM CDT Sravanthi Banerjee NP LAB BLOOD ORDERABLES Final Result OBED SOMMER ([place]) 1 [facility] Department [place] [address] * Diabetic Eye Exam (10/11/2023 11:34 AM CDT) Historical Provider HEALTH MAINTENANCE Final Result * Screening Mammogram Bilateral W Sagar (10/31/2022 10:05 AM CDT) Anatomical Region Laterality Modality Breast Bilateral Mammography 10/31/2022 10:1 0 AM CDT Impressions 10/31/2022 10:10 AM CDT There is no mammographic evidence of malignancy. A 1 year screening mammogram is recommended. BI-RADS: 1 - Negative. The patient has been or will be contacted. The patient will be entered into a reminder system with a target due date of 1 year for her next mammogram. Electronically signed by: Tho Roberts M.D. Narrative 10/31/2022 10:10 AM CDT EXAMINATION: SCREENING MAMMOGRAM BILATERAL W SAGAR ORDERING HEALTHCARE PROVIDER: SELF SCREENING MAMMOGRAM HISTORY: Routine screening mammography. COMPARISON: 04/14/2021, 09/09/2018 TECHNIQUE: CC and MLO views of the bilateral breasts were obtained with digital technique using breast tomosynthesis with C view. Computer aided detection was utilized. FINDINGS: DENSITY: There are scattered fibroglandular elements in the bilateral breasts. BREASTS: There are no suspicious masses, suspicious calcifications, or other suspicious findings in either breast. There has been no suspicious interval change. us Self Screening Mammogram IMG MAMMO PROCEDURES Fi nal Result * Stool DNA - Cologuard (07/21/2022 3:30 PM PHOTO FINISHER) Stool DNA - Cologuard Negative Negative [facility] (CLIA #:[id number]) Comment: NEGATIVE TEST RESULT. A negative Cologuard result indicates a low likelihood that a colorectal cancer (CRC) or advanced adenoma (adenomatous polyps with more advanced pre-malignant features) is present. The chance that a person with a negative Cologuard test has a colorectal cancer is less than 1 in 1500 (negative predictive value >99.9%) or has an advanced adenoma is less than 5.3% (negative predictive value 94.7%). These data are based on a prospective cross-sectional study of 10,000 individuals at average risk for colorectal cancer who were screened with both Cologuard and colonoscopy. (Ivory Gaviria et al, N Engl J Med 2014;370(14):2757-7174) The normal value (reference range) for this assay is negative. COLOGUARD RE-SCREENING RECOMMENDATION: Periodic colorectal cancer screening is an important part of preventive healthcare for asymptomatic individuals at average risk for colorectal cancer. Following a negative Cologuard result, the [place] Cancer Society and U.S. Multi-Society Task Force screening guidelines recommend a Cologuard re-screening interval of 3 years. References: [place] Cancer Society Guideline for Colorectal Cancer Screening: https://www.cancer.org/cancer/jimsg-vxeqbh-mdpqpa/qsqlpefso-cwyfohmuz-hrimpcb/ac s-rec ommendations.html.; Teto DK, Rex CR, Flip COSTA, Colorectal Cancer Screening: Recommendations for Physicians and Patients from the U.S. Multi-Society Task Force on Colorectal Cancer Screening , Am J Gastroenterology 2017; 112:9322-0646. TEST DESCRIPTION: Composite algorithmic analysis of stool DNA-biomarkers with hemoglobin immunoassay. Quantitative values of individual biomarkers are not reportable and are not associated with individual biomarker result reference ranges. Cologuard is intended for colorectal cancer screening of adults of either sex, 45 years or older, who are at average-risk for colorectal cancer (CRC). Cologuard has been approved for use by the U.S. FDA. The performance of Cologuard was established in a cross sectional study of average-risk adults aged 50-84. Cologuard performance in patients ages 45 to 49 years was estimated by sub-group analysis of near-age groups. Colonoscopies performed for a positive result may find as the most clinically significant lesion: colorectal cancer [4.0%], advanced adenoma (including sessile serrated polyps greater than or equal to 1cm diameter) [20%] or non- advanced adenoma [31%]; or no colorectal neoplasia [45%]. These estimates are derived from a prospective cross-sectional screening study of 10,000 individuals at average risk for colorectal cancer who were screened with both Cologuard and colonoscopy. (Ivory Santizo. et al, N Engl J Med 2014;370(14):8002-9859.) Cologuard may produce a false negative or false positive result (no colorectal cancer or precancerous polyp present at colonoscopy follow up). A negative Cologuard test result does not guarantee the absence of CRC or advanced adenoma (pre-cancer). The current Cologuard screening interval is every 3 years. ([place] Cancer Society and U.S. Multi-Society Task Force). Cologuard performance data in a 10,000 patient pivotal study using colonoscopy as the reference method can be accessed at the following location: www.AREVS.Funifi/results. Additional description of the Cologuard test process, warnings and precautions can be found at www.cologCorevalus Systemsrd.com. Stool 07/21/2022 3:30 PM PHOTO FINISHER 07/23/2022 11:26 AM PHOTO FINISHER Sravanthi Banerjee NP LAB BODY FLUIDS AND STOOLS ORDERABLES Final Result [facility] (CLIA #:[id number]) [address] [place] [address] from Last 3 Months or Most Recently Relevant to Health Maintenance Insurance [employer] [place] [employer] [place] Advance Directives For more information, please contact: [phone] * Full Code (Latest Code Status on File) Date Activated Date Inactivated Comments 02/02/2019 4:06 AM 02/02/2019 9:25 PM * Full Code Date Activated Date Inactivated Comments 11/17/2018 8:02 AM 11/17/2018 9:27 PM Care Teams Psychology Department Chair Relationship Specialty Start Date End Date Edmundo Costello MD [address] [place] [address] PCP - General Family Medicine 11/25/23 Edmundo Costello MD [address] [place] [address] 06/23/20
--- OUTSIDE RECORDS SUMMARY | 2024-11-02 17:51 | XMS_ITS | Clinical Summary ---
Author Organization [facility] Address [address] [place] [address] Care Team Providers Care Speech Communication Professor Name Role Phone Edmundo Costello MD Unavailable [phone] Edmundo Costello MD Primary Care Provider [phone] Allergies No known active allergies Medications blood-glucose [...] 06/17/2022 Assessment & Plan (07/03/2022 11:45 AM BUILDING CONSTRUCTION FOREMAN): Intermittent pain, scheduled for cholecystectomy scheduled 07/09/[address] Rust. Continues prn tramadol and ondansetron. Reviewed need to follow bland diet and avoid fatty/spicy foods. Go to ER if experiencing new or worsening pain. Assessment & Plan (06/17/2022 9:43 AM BUILDING CONSTRUCTION FOREMAN): Normal exam today. Patient has not been [...] exercise Assessment & Plan (07/03/2022 11:45 AM BUILDING CONSTRUCTION FOREMAN): Discussed healthy diet and importance of regular physical activity. Assessment & Plan (06/17/2022 9:21 AM BUILDING CONSTRUCTION FOREMAN): Continues ozempic 1 mg weekly. Encouraged increase [...] GI. Assessment & Plan (05/14/2019 3:37 PM BUILDING CONSTRUCTION FOREMAN): Stable on omeprazole. Complicated migraine 02/02/2019 Assessment [...] had a similar symptoms years ago at [facility]. She states the only reason she did [...] (10/15/2018): Added automatically from request for surgery [id number] Narcolepsy and cataplexy 10/12/2018 Assessment & Plan (05/14/2019 3:33 PM BUILDING CONSTRUCTION FOREMAN): Stable on current medication. Obstructive sleep apnea [...] labs. Assessment & Plan (06/17/2022 9:37 AM BUILDING CONSTRUCTION FOREMAN): Continues atorvastatin 40 mg daily with good [...] medications. Assessment & Plan (05/14/2019 3:33 PM BUILDING CONSTRUCTION FOREMAN): Briefed on heart healthy diet and need [...] controlled. Assessment & Plan (06/17/2022 9:22 AM BUILDING CONSTRUCTION FOREMAN): Lab Results Component Value Date HGBA1C 6.0 [...] an eye exam 6 months ago at [facility], will request records. Checking feet daily, - [...] 05/14/2019 Assessment & Plan (05/14/2019 3:32 PM BUILDING CONSTRUCTION FOREMAN): Will increase metformin follow-up in 3 months. [...] 21 Assessment & Plan (05/14/2019 3:33 PM BUILDING CONSTRUCTION FOREMAN): Advised on need for weight loss in [...] Patient Refused) PPD TEST 01/27/2024 Tdap 01/27/2024 Surgical History Surgery Date Site/Laterality Comments SECTION 05/26/2002 - 05/25/2003 SECTION 05/26/2011 - 05/25/2012 CARPAL TUNNEL RELEASE 05/26/2015 - 05/25/2016 CHOLECYSTECTOMY Medical History Medical History Date Comments Depression Depression Type 2 diabetes mellitus (HCC) 2016 D iabetes type 2 Neck pain 02/29/2016 Cervicalgia GERD (gastroesophageal reflux disease) Eosinophilic esophagitis Narcolepsy Dysphagia Family History Medical History Relation Name Comments Diabetes Father Arthritis Other 1 Family history of Arthritis; Gout Other 2 Family history of Gout; Hypertension Other 3 Family history of Hypertension; Diabetes type II Other 4 Family hist ory of Diabetes mellitus type 2; Relation Name Status Comments Father Alive Mother Alive Other 1 Other 2 Other 3 Other 4 Social History Tobacco Use Types Packs/Day Years [...] on file Legal Sex Female 2:39 AM BUILDING CONSTRUCTION FOREMAN Gender Identity Not on file Sexual Orientation Not on file Obstetrics History Para Term AB IAB SAB Ectopic Multiple Livin g Live Births 4 4 4 Date Outcome GA Total Labor Labor/2nd/3rd Weight Sex Type Anes PTL Noelle A1 A5 Name Clin Term Term Term Term Last Filed Vital Signs Vital Sign Reading [...] 01/27/2024 3:39 PM CDT Plan of Treatment Health Maintenance Due Date Last Done Comments Cervical Cancer Screening 1976 Hepatitis C Screening 1976 Hepatitis B Screening 1994 Pneumococcal vaccine <65 (1 of 2 - PCV) 11/19/1995 Breast Cancer Screening-Mammogram 11/01/2023 10/31/2022, 04/14/2021, 09/09/2018 Hemoglobin A1C 07/27/2024 01/28/2024, 09/23, 06/17/2022, Additional history exists Depression Screening 01/26/2025 01/27/2024, 02/10/2023, 08/23/2022, Additional history exists Foot Exam 01/26/2025 01/27/2024, 01/24, 06/12/2020, Additional history exists Regular Well Visit/Exam 18-64 01/26/2025 01/27/2024, 06/13/2017 Albumin Creatinine Ratio, Urine 01/27/2025 01/28/2024, 02/27/2022, 06/12/2020, Additional history exists Lipid Panel 01/27/2025 01/28/2024, 09/23, 02/27/2022, Additional history exists eGFR 01/27/2025 01/28/2024, 09/23, 06/12/2022, Additional history exists Colon Cancer Screening-DNA Stool 07/21/2025 07/21/19 23 Dilated Eye Exam 10/10/2025 10/11/2023, 12/2021, 06/02/2021 DTaP/Tdap/Td Vaccine (2 - Td or Tdap) 01/26/2034 01/27/2024 Influenza Vaccine Discontinued Procedures Procedure Name Priority Date/Time Associated Diagnosis [...] STOOL DNA COLOGUARD Routine 07/21/2022 3:30 PM BUILDING CONSTRUCTION FOREMAN Encounter for colorectal cancer screening from Last [...] was last reviewed 2021. Testing performed by: [facility], [address] [place] [address]., [address] Blood 01/28/2024 10:0 1 AM CDT 01/28/2024 2:00 PM CDT Sravanthi Banerjee CAR FERRY MASTER LAB BLOOD ORDERABLES Final Result Performing Organization Address City/[facility]/ZIP Co de Phone Number KOBYISAAC ROS ([address]) 1 [facility] [place] [address] * Albumin Creatinine Ratio, Urine (01/28/2024 10:01 AM CDT) Albumin Ur <12.0 mg/L Comment: Interpretive Data No reference range established. Current interpretive data was last revised 2018. Testing performed by: [facility], [address] [place] [address]., [address] Creatinine Ur 273.7 mg/dL OBED SOMMER ([place]) Comment: Interpretive Data No reference range established. Current interpretive data was last revised 2018. Testing performed by: [facility], [address] [place] [address]., [address] Albumin Creatinine Ratio, Ur <4 1 - 29 mg/g OBED SOMMER ([place]) Comment:Testing performed by : [facility], [address] [place] [address]., [address] Urine 01/28/2024 10:0 1 AM CDT 01/28/2024 1:41 PM CDT Sravanthi Banerjee NP LAB URINE ORDERABLES Final Result Performing Organization Address City/[facility]/ZIP Co de Phone Number OBED SOMMER ([address]) 1 [facility] [place] [address] * Hemoglobin A1c (01/28/2024 10:01 AM CDT) Hgb A1C 5.5 4.0 - 5.6 % Comment:Testing performed by : [address] [address] Estimated Average Glucose 111 mg/dL OBED SOMMER ([place]) Comment: The ADA recommends reporting an estimated Average Glucose (eAG) with all Hemoglobin A1c results using the equation derived from a study of 507 normal and diabetic adults. Minority populations were underrepresented and children were not included. (Diabetes Care 31:9188-7332, 2008). The eAG is not equivalent to a fasting glucose. Testing performed by: [address] [address] Blood 01/28/2024 10:0 1 AM CDT 01/28/2024 1:41 PM CDT Sravanthi Banerjee NP LAB BLOOD ORDERABLES Final Result OBED SOMMER ([place]) 1 [facility] Department of [place] [address] * (ABNORMAL) Lipid panel (01/28/2024 10:01 AM [...] last revised on 2018. Testing performed by: [address] [address] Triglycerides 101 <=149 mg/dL OBED SOMMER ([place]) [...] last revised on 2018. Testing performed by: [facility], [address] [place] [address]., [address] HDL 45 >=40 mg/dL OBED SOMMER ([place]) Comment: Interpretive Data [...] last revised on 2018. Testing performed by: [facility], [address] [place] [address]., [address] LDL, calculated 161(H) <=129 mg/dL OBED SOMMER ([place]) Comment: Interpretive Data [...] NCEP Expert Panel. Circulation 2004;110:227 3. Cornel Velez et al. HORACE Cardiol. 2019September 23;5(5):540-548. doi: 10.1001/jamacardio.2020.0013 Current Interpretive Data was last revised on 2024. Testing performed by: [facility], [address] [place] [address]., [address] Non-HDL Cholesterol 179 mg/dL OBED SOMMER ([place]) Comment: Interpretive Data [...] last revised on 2018. Testing performed by: [facility], [address] [place] [address]., [address] Chol/HDL ratio 5 ABRAHAM SOMMER ([place]) Comment:Testing performed by : [facility], [address] [place] [address]., [address] Blood 01/28/2024 10:0 1 AM CDT 01/28/2024 1:41 PM CDT Sravanthi Banerjee CAR FERRY MASTER LAB BLOOD ORDERABLES Final Result OBED SOMMER ([place]) 1 [facility] Department of [place] [address] * Diabetic Eye Exam (10/11/2023 11:34 AM [...] Stool DNA - Cologuard (07/21/2022 3:30 PM BUILDING CONSTRUCTION FOREMAN) Stool DNA - Cologuard Negative Negative [facility] (CLIA #:[id number]) Comment: NEGATIVE TEST RESULT. A negative Cologuard [...] Gaviria et al, N Engl J Med 2014;370(14):4745-3153) The normal value (reference range) for this assay is negative. COLOGUARD RE-SCREENING RECOMMENDATION: Periodic colorectal cancer screening is an important part of preventive healthcare for asymptomatic individuals at average risk for colorectal cancer. Following a negative Cologuard result, the [place] Cancer Society and U.S. Multi-Society Task Force screening guidelines recommend a Cologuard re-screening interval of 3 years. References: [place] Cancer Society Guideline for Colorectal Cancer Screening: https://www.cancer.org/cancer/mtnbx-xwpglr-cliafc/zzephebap-hqfjxhzra-rzybqkl/ac s-rec ommendations.html.; Teto DK, Rex GRAHAM, Flip COSTA, Colorectal Cancer Screening: Recommendations for Physicians and Patients from the U.S. Multi-Society Task Force on Colorectal Cancer Screening , Am J Gastroenterology 2017; 112:3283-7049. TEST DESCRIPTION: Composite algorithmic analysis of stool [...] screened with both Cologuard and colonoscopy. (Ivory Ballard al, N Engl J Med 2014;370(14):0264-9038.) Cologuard may produce a false negative or false positive result (no colorectal cancer or precancerous polyp present at colonoscopy follow up). A negative Cologuard test result does not guarantee the absence of CRC or advanced adenoma (pre-cancer). The current Cologuard screening interval is every 3 years. ([place] Cancer Society and U.S. Multi-Society Task Force). Cologuard performance data in a 10,000 patient pivotal study using colonoscopy as the reference method can be accessed at the following location: www.[employer]/results. Additional description of the Cologuard test process, warnings and precautions can be found at www.cologuard.com. Stool 07/21/2022 3:30 PM BUILDING CONSTRUCTION FOREMAN 07/23/2022 11:26 AM BUILDING CONSTRUCTION FOREMAN Sravanthi Banerjee CAR FERRY MASTER LAB BODY FLUIDS AND STOOLS ORDERABLES Final Result [facility] (CLIA #:[id number]) [address] [place] [address] from Last 3 Months or Most Recently Relevant to Health Maintenance Insurance [employer] [place] [employer] [place] Member Subscriber Plan / Payer (Ef fective 2015-Present) Name:Cee Ibarra Relation to Subscriber:Spouse Name:KONG IBARRA Date of :1975 (Home) Address: [place] [address] Payer ID:[id number] (NAIC) Type:BC OTHER Address: [address] [place] [id number] [employer] [place] Advance Directives For more information, please contact: [phone] * Full Code (Latest Code Status on File) Date Activated Date Inactivated Comments 02/02/2019 4:06 AM 02/02/2019 9:25 PM * Full Code Date Activated Date Inactivated Comments 11/17/2018 8:02 AM 11/17/2018 9:27 PM Care Teams Speech Communication Professor Relationship Specialty Start Date End Date Edmundo Costello MD [address] [place] [address] PCP - General Family Medicine 11/25/23 Edmundo Costello MD [address] [place] [address] 06/23/20
[2024-11-02 17:53] VITALS: BP 114/73; PULSE 78; RESP 20; TEMP 37; O2SAT 100
--- NOTE | 2024-11-02 18:15 | ED_ITS ---
HPI - Skin/Abscess/Foreign Bdy General Chief complaint: Skin/Abscess/Foreign Body Stated complaint: Spider Bite Time Seen by Provider: 11/02/24 18:15 Source: patient Mode of arrival: ambulatory Limitations: no limitations History of Present Illness HPI narrative: 48-year-old female presented for complaint of a possible insect bite to the neck. Endorses itching, localized redness and swelling to the area. Onset yesterday morning. She applied benadryl cream. Says last night she squeezed out pus and blood from the site. reports the redness has spread. Related Data Home Medications ?Medication ?Instructions ?Recorded ?Confirmed ?Last Taken ?Type atorvastatin 40 mg tablet 40 mg PO HS 10/02/20 11/02/24 07/08/22 History sertraline 50 mg tablet 50 mg PO HS 10/02/20 11/02/24 07/08/22 History omeprazole 40 mg capsule,delayed 40 mg PO HS 06/14/22 07/22/22 07/08/22 History release atorvastatin 20 mg tablet mg 11/02/24 Unknown History sertraline 100 mg tablet mg 11/02/24 Unknown History tirzepatide 15 mg/0.5 mL mg subcut 11/02/24 Unknown History subcutaneous pen injector (Mounjaro) Allergies Allergy/AdvReac Type Severity Reaction Status Date / Time No Known Allergies Allergy Unknown Verified 11/02/24 18:00 Review of Systems Review of Systems: CONSTITUTIONAL: Denies body aches, fever, chills, or sweats. EYES: Denies visual changes, redness, or discharge. ENT: Denies rhinorrhea, congestion CARDIOVASCULAR: Denies chest pain, palpitations, or edema. RESPIRATORY: Denies cough or dyspnea. GASTROINTESTINAL: Denies abdominal pain, nausea, vomiting, or diarrhea. SKIN: per HPI MUSCULOSKELETAL: Denies back pain, joint pain, or myalgia. NEUROLOGIC: Denies headache, numbness, tingling, or weakness. [facility] Past Medical History Medical History Depression Diabetes type 2, controlled GERD (gastroesophageal reflux disease) High cholesterol Obesity Surgical History Surgical History History of carpal tunnel release History of delivery History of laparoscopic cholecystectomy 07/09/22 Laparoscopic cholecystectomy with cholangiography, da Julio César assisted. 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 Please see nursing chart for further information. There is no relevant family history pertinent to the presenting complaint Exam Narrative: GENERAL: Well-appearing HEAD: Normocephalic, atraumatic. EYES: conjunctivae clear, and EOMI. ENT: Mucous membranes moist. Oropharynx without edema, erythema or lesions. NECK: Supple. No lymphadenopathy CHEST: Clear to auscultation. HEART: Regular rate and rhythm. SKIN: Warm, dry. anterior neck with 5x6cm area of erythema, mild swelling, center with puncture site. nontender, no fluctuance or drainage. NEURO: Alert and oriented x3. Course Course Emergency Course: Patient is aware of diagnosis, understands and agrees to treatment plan. Anticipatory guidance given. Patient agrees to follow-up as directed and is aware of reasons to seek care at the emergency department. Portions of this record may have been created with voice recognition software Level of Care: Express Care Visit Vital Signs Vital signs: Vital Signs Temperature 98.6 F 11/02/24 17:53 Pulse Rate 78 11/02/24 17:53 Respiratory Rate 20 11/02/24 17:53 Blood Pressure 114/73 11/02/24 17:53 Pulse Oximetry 100 11/02/24 17:53 Oxygen Delivery Room Air 11/02/24 17:53 Temperature 98.6 F 11/02/24 17:53 Pulse Rate 78 11/02/24 17:53 Respiratory Rate 20 11/02/24 17:53 Blood Pressure 114/73 11/02/24 17:53 Pulse Oximetry 100 11/02/24 17:53 Oxygen Delivery Room Air 06/10/25 17:53 Reviewed MDM - Skin/Abscess/Foreign Bdy MDM Narrative Medical decision making narrative: Discussed physical exam findings. Will send abx and low steroid. Advised supportive measures and signs/symptoms to go to the ER. Pt is appropriate for outpt treatment and f/u. Differential Diagnosis Differential diagnosis: Likely abscess of skin or subcutaneous tissue, viral exanthem, dermatophytosis, urticaria, herpes zoster, cellulitis, eczema, insect bites, impetigo and contact dermatitis Discharge Plan Discharge Clinical Impression: Cellulitis Patient Disposition: Home Condition: Stable Instructions: Antibiotic Form, Insect Bite or Sting (ED) Additional Instructions: Keep the area clean and dry - cleanse with warm water and mild soap and allow to fully dry. Ok to apply Cream such as calamine or Benadryl cream to reduce itching Take medication as directed Watch for worsening symptoms including pain, redness, swelling, streaking, pus/drainage, fever. Go to the ER with any of these symptoms or concerns. Follow up with primary care provider in 1 week as needed. Patient Language: Belizean Prescriptions: New prednisone 20 mg tablet 20 mg PO DAILY Qty: 3 0RF cephalexin 500 mg capsule 500 mg PO Q12H 5 Days Qty: 10 0RF No Action sertraline 50 mg tablet 50 mg PO HS atorvastatin 40 mg tablet 40 mg PO HS atorvastatin 20 mg tablet sertraline 100 mg tablet Mounjaro 15 mg/0.5 mL pen injector SUBCUT omeprazole 40 mg capsule,delayed release(DR/EC) 40 mg PO HS Follow-up/Referrals: UNKNOWN,DOCTOR [Primary Care Provider] - Time of Disposition: 18:19
== END 2024-11-02 18:20 | disposition home or self-care (01) ==
PROVIDERS: Emergency Provider Nurse Practitioner Family
DX: L03.221 Cellulitis of neck (principal); E11.9 Type 2 diabetes mellitus without complications; K21.9 Gastro-esophageal reflux disease without esophagitis; E78.00 Pure hypercholesterolemia, unspecified; E66.9 Obesity, unspecified; F32.A Depression, unspecified; Z68.27 Body mass index [BMI] 27.0-27.9, adult
CPT/HCPCS: 99213; G0463